=== PATIENT | male | born 1985 | race Caucasian/White ===

== ENCOUNTER 2016-10-11 08:01 | Inpatient (IN) | payer OTHER ==
--- NOTE | ~2016-10-11 | PN ---
Unit #: [id number] #: [id number] Patient: HORACIO VAUGHN [id number] [facility] [address] [place] [address] [id number] MR#: [id number] NAME: HORACIO VAUGHN ROOM: 77 Age: 31 Sex: M Admission Date: 10/11/2016 : 1985 Attending Physician: Meet Maguire M.D. Admitting Physician: Meet Maguire M.D. 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 The patient is continuing to report symptoms of aches and pains, tremors, diaphoresis, upset stomach, sleep disturbance, some dysphoria, and poor energy. He said does feel better today compared to yesterday but symptoms are still in place, fortunately vital signs look improved today. No overt vomiting or diarrhea as of yet. MENTAL STATUS EXAMINATION General appearance was a moderately groomed white male, limited eye contact. Speech was clear and coherent with paucity but brief. Mood was dysphoric with a constricted affect. Thought process and content were grossly organized, linear, no overt evidence of psychosis, no SI, no HI reported. The patient's memory was generally intact. Associations were normal. Cognitive functioning was at baseline. He was alert and oriented x4. Insight and judgment is improving. RECOMMENDATIONS We will continue the patient's admission for safety and stabilization, for further detox care. Symptoms seem to be improving and will monitor to make sure that that process continues for best care. We will monitor regularly and reevaluate in the morning. Dictated by... Meet Maguire M.D. AFSANEH/brian TD: 10/13/2016 05:26 JOB #: [id number] Unit #: [id number] #: [id number] Patient: HORACIO VAUGHN PROGRESS NOTES Page 1 of 1 X Meet Maguire MD X PROGRESS NOTE
--- NOTE | ~2016-10-11 | HP ---
Unit #: [id number] #: [id number] Patient: RUPERTO VAUGHN [id number] [place] [address] [id number] MR#: [id number] NAME: RUPERTO VAUGHN ROOM: P177 Age: 31 Sex: M Admission Date: 10/11/2016 : 1985 Attending Physician: Meet Maguire M.D. Admitting Physician: Meet Maguire M.D. Primary Care Physician: Daina Hanna M.D. HISTORY AND PHYSICAL HISTORY OF PRESENT ILLNESS Ruperto is a 31 year old admitted to [facility] because of his drug use. He shoots heroin. PAST MEDICAL HISTORY Long history of opioid abuse to include IV heroin. PAST SURGICAL HISTORY Nothing reported. ALLERGIES No known drug allergies. SOCIAL HISTORY Smokes one pack per day. Denies alcohol. Admits to a long history of opioid abuse to include IV heroin. FAMILY HISTORY Medically noncontributory. REVIEW OF SYSTEMS CONSTITUTIONAL: No fever or chills. HEENT: Denies any sore throat, ear pain or runny nose. CARDIOVASCULAR: Denies chest pain, irregular heart rhythm or palpitations. CHEST: Denies shortness of breath or cough. No hemoptysis. GASTROINTESTINAL: Denies nausea, vomiting, diarrhea or chronic constipation. ENDOCRINE: Denies history of increased thirst or urination. No recent significant weight loss or gain. GENITOURINARY: Denies dysuria, frequency, or hematuria. SKIN: Denies any rashes. HEMATOLOGIC: Denies history of increased bleeding or bruising. MUSCULOSKELETAL: Denies any hot, swollen joints. No generalized muscle pain. NEUROLOGIC: Denies problems with vision or speech. No frequent, severe headaches. No numbness, tingling or weakness in any extremities. Denies loss of bladder or bowel control. CURRENT MEDICATIONS Detox protocol. PHYSICAL EXAMINATION GENERAL: Alert, well nourished. No apparent distress. VITAL SIGNS: Blood pressure 130/82, heart rate 50, respirations 16, and Unit #: [id number] #: [id number] Patient: RUPERTO VAUGHN temperature 98.6. WEIGHT: 210. HEIGHT: 6 feet 4 inches. SKIN: Warm and dry without rash or lesion. HEENT: Normocephalic. TMs not viewed. Oral and nasal passages clear. Conjunctivae clear. PERRLA. EOMs intact. NECK: Supple without lymphadenopathy or thyromegaly. HEART: Regular rate and rhythm without murmur. LUNGS: Clear. ABDOMEN: Soft, nontender. : Not done. EXTREMITIES: No evidence of cyanosis, clubbing or edema. Moves all without focal deficit. NEUROLOGICAL: Grossly within normal limits. Cranial Nerves: II: Visual nuno are intact. III, IV AND : Extraocular movements are intact. Pupils are equal, round and reactive to light. V: Facial sensation is grossly normal. VII: Facial movements and expression are normal. VIII: Auditory acuity grossly intact. IX, X: Uvula is midline. Phonation is normal. XI: Patient shrugs shoulders and turns head normally. XII: Tongue protrudes in the midline. Sensory and Motor Function: Sensory and motor sensation is grossly normal. Motor: moves all extremities well. Coordination: Gait is normal. Deep Tendon Reflexes: Intact. IMPRESSION Psychiatric admission. RECOMMENDATIONS PSYCHIATRIC: Per psychiatrist. MEDICAL: I see no contraindication to participate in this facility's activities. MEDICAL PROGNOSIS Good. MEDICAL CONDITION Stable. Dictated by... Breonna Gaitan PGeorginaAYumiko. for Jamison Conrad/mykel TD: 10/12/2016 08:36 JOB #: [id number] Unit #: [id number] #: [id number] Patient: RUPERTO VAUGHN HISTORY AND PHYSICAL Page 1 of 1 X Breonna Gaitan HISTORY AND PHYSICAL
--- NOTE | ~2016-10-11 | PA ---
Unit #: [id number] #: [id number] Patient: HORACIO VAUGHN [id number] [place] [address] [id number] MR#: [id number] NAME: HORACIO VAUGHN. ROOM: P177 Age: 31 Sex: M Admission Date: 10/11/2016 : 1985 Date of Assessment: 10/11/2016 Attending Physician: Meet Maguire M.D. Admitting Physician: Meet Maguire M.D. Primary Care Physician: Daina Hanna M.D. PSYCHIATRIC ASSESSMENT LOCATION Our [address], room #177, bed #2. DATE OF SERVICE 10/11/2016. INFORMANTS The patient and chart, both seem reliable. CHIEF COMPLAINT "I need to stop using heroin." HISTORY OF PRESENT ILLNESS This is a 31-year-old white male with longstanding history of IV heroin use. The patient reports using up to 2 g or more a day for the last several years. Currently, he abused Opana before that, but was becoming more scared, heroin was the easier alternative. He denied any other drugs, regular abuse or substance use. Denies any acute mood issues. No SI. No HI. The patient says he has had detox issues in the past, last time he went through withdrawal was over a year ago when he was in [place] [facility]. Since then, he has been using pretty much daily since he got out. He reports good support through his family. Denied any significant complications in the past with his withdrawal. PAST PSYCHIATRIC HISTORY Nothing to speak of in terms of overt psychiatric issues. No treatment inpatient or out. No history of medications. The patient denies any history of SI, HI, or any psychosis. FAMILY HISTORY Noncontributory. SOCIAL HISTORY The patient is and has some children who are currently being looked after by his grandparents, has good support through family members, currently [employer]. MEDICAL HISTORY Nothing contributory. MEDICATION HISTORY None. Unit #: [id number] #: [id number] Patient: HORACIO VAUGHN ALLERGIES Include no known drug allergies. SUBSTANCE ABUSE HISTORY As noted above. Previous treatment in [place] [facility] beyond that nothing of significance. Denied any other drugs of abuse. Denied any significant withdrawal history. MENTAL STATUS EXAMINATION General appearance; he is a limitedly groomed white male, appears older than stated age, tattooed on upper extremities, good eye contact. His speech was clear and coherent. Mood was somewhat irritable with a congruent affect. Thought process and content were grossly organized and linear. No overt evidence of psychosis. No SI, no HI reported or elicited. The patient's memory was grossly intact. Associations were normal. Cognitive function was at baseline. Alert and oriented x4. Insight and judgment were limited regarding substance abuse. ASSETS AND LIABILITIES Assets include good support network and previous exposure with chemical dependency withdrawal. Liabilities include longstanding drug use, history of legal issues. ADMITTING DIAGNOSIS Opioid dependency with withdrawal. PSYCHIATRIC PLAN To continue the patient's admission for safety and stabilization for ongoing issues with suspected detox needs. The patient is already reporting aches and pains, chills and was noted with mild tremor in both hands. He just got admitted today. We will keep the patient on the detox protocol and monitor accordingly. 100 mg of trazodone will be added for sleep as needed. The patient is already on nicotine patch 21 mg daily as he smokes a pack a day. Treatment goal will be resolution of all symptoms in a safe controlled environment with discharge planning most likely requiring community resources if not residential program if applicable. ESTIMATED LENGTH OF STAY Approximately 4 to 5 days. Dictated by... Meet Maguire M.D. AFSANEH/ashley TD: 10/12/2016 02:16 JOB #: [id number] Unit #: [id number] #: [id number] Patient: HORACIO VAUGHN PSYCHIATRIC ASSESSMENT Page 1 of 1 X Meet Maguire MD PSYCHIATRIC ASSESSMENT
--- NOTE | ~2016-10-11 | DS ---
Unit #: [id number] #: [id number] Patient: HORACIO VAUGHN [id number] [place] [address] [id number] MR#: [id number] NAME: HORACIO VAUGHN ROOM: P177 Age: 31 Sex: M Admission Date: 10/11/2016 : 1985 Discharge Date: 10/13/2016 Attending Physician: Meet Maguire M.D. Primary Care Physician: Daina Hanna M.D. DISCHARGE SUMMARY REASON FOR ADMISSION Heroin dependency and withdraw. DIAGNOSTIC STUDIES Pertinent laboratory data, the patient had routine blood work which included a CMP that was grossly within normal parameters with the exception of the alkaline phosphatase level slightly elevated at 18, the patient also had a CBC that was well within normal parameters, RPR was nonreactive. Urinalysis was positive for amphetamines and opiates in keeping with his reported history. Urinalysis that showed trace protein and 1+ urobilinogen but no other findings in other tests. HOSPITAL COURSE The patient was admitted for safety and stabilization, for heroin dependency and related withdraw. He was placed on appropriate COWS protocol and monitored accordingly. Overall, the patient was fairly isolative to self and his room and reported symptoms of aches, pains, diaphoresis, dysphoria, anxiety, sleep disturbance, and upset stomach. Over the course of the hospitalization his symptoms rapidly improved. At the time of discharge, he felt "good." He was looking forward to going to the CD/IOP program afterwards and was going to go home with his family and there were no issues with acute mood issues. There was no SI or HI, or evidence of dangerousness. Overall, the patient's care course had gone very well without any acute aberrations. It was felt that the patient had reached his maximum benefit and was appropriate for discharge home and transition to outpatient care. DISCHARGE DIAGNOSES [place] I Opiate dependency with withdraw. [place] II [place] III [place] IV [place] V DISCHARGE INSTRUCTIONS Include follow up with the CD/IOP program and community resources per their discretion. DISCHARGE MEDICATIONS None. CONDITION AT DISCHARGE Unit #: [id number] #: [id number] Patient: HORACIO VAUGHN Improving. PROGNOSIS [id number]. DIET AND ACTIVITY Diet is regular. Activity as tolerated with sobriety encouraged and compliance with treatment encouraged. Dictated by... Jamison Yo TD: 10/13/2016 10:52 JOB #: [id number] DISCHARGE SUMMARY Page 1 of 1 X Meet Maguire MD X DISCHARGE SUMMARY
[2016-10-12 09:41] LABS: URINE APPEARANCE CLEAR; URINE BILIRUBIN NEG (NEG); URINE BLOOD NEG (NEG); URINE COLOR DK YELLOW; URINE GLUCOSE NEG (NEG); URINE KETONE NEG (NEG); URINE LEUKOCYTE ESTERASE NEG (NEG); URINE NITRATE NEG (NEG); URINE PROTEIN TRACE (NEG); URINE SPECIFIC GRAVITY 1.025 (1.003-1.035)
[2016-10-12 09:42] LABS: BASOPHIL% 0.3 % (0-2.5); EOSINOPHIL# 0.1 X10e3 (0-0.7); EOSINOPHIL% 0.8 % (0.0-7.0); HEMATOCRIT 38.7 % (38.0-50.0); LYMPHOCYTE# 2.8 X10e3 (1.0-3.5); LYMPHOCYTE% 39.9 % (17.0-45.0); MEAN CELL VOLUME 84.7 FL (83-96); MEAN CORPUSCULAR HEMOGLOBIN 28.4 PG (28-34); MEAN CORPUSCULAR HGB CONC 33.5 g/dL (30-36); MEAN PLATELET VOLUME 8.6 FL (6.5-11.5); MONOCYTE# 0.5 X10e3 (0-1.0); MONOCYTE% 7.4 % (3.0-12.0); NEUTROPHIL# 3.7 X10e3 (1.5-7.1); NEUTROPHIL% 51.6 % (40-75); PLATELET COUNT 170 X10e3 (140-420); RED BLOOD COUNT 4.57 X10e (3.90-5.60); RED CELL DISTRIBUTION WIDTH 14.4 % (11.0-15.5); WHITE BLOOD COUNT 7.1 X10e3 (4.0-10.5)
[2016-10-12 09:53] LABS: DIFF IND NO
[2016-10-12 09:55] LABS: ALBUMIN SERUM 3.8 g/dL (3.5-5.0); BILIRUBIN,TOTAL 0.5 mg/dL (0.2-2.0); BUN/CREATININE RATIO 18.57; CALCIUM SERUM 8.8 mg/dL (8.4-10.2); CREATININE SERUM 0.7 mg/dL (0.6-1.4); GLOM FILT RATE Estimated 124.9 mL/min (>60); POTASSIUM 4.1 mmol/L (3.5-5.1); PROTEIN TOTAL SERUM 6.5 g/dL (6.0-8.3)
[2016-10-12 10:58] LABS: AMPHETAMINE POS (NEG); BARBITURATES NEG (NEG); BENZODIAZEPINES NEG (NEG); COCAINE NEG (NEG); MARIJUANA NEG (NEG); OPIATES POS (NEG); TRICYCLIC ANTIDEPRESSANTS NEG (NEG); U METHADONE NEG (NEG)
== END 2016-10-13 11:15 | disposition home or self-care (01) | DRG 897 ==
LOC: P1E 10:17
PROVIDERS: Psychiatry & Neurology Psychiatry
PROC: HZ2ZZZZ Detoxification Services for Substance Abuse Treatment (ICD-10-PCS; principal; 2016-10-11)
DX: F11.23 Opioid dependence with withdrawal (principal); F17.210 Nicotine dependence, cigarettes, uncomplicated
CPT/HCPCS: 80053; 80307; 81003; 85025; 86592